=== PATIENT | female | born 1955 | race Caucasian/White ===

== ENCOUNTER 2019-01-22 06:49 | Day surgery (SDC) | payer BC ==
[~2019-01-22] VITALS: Ht 157.5 cm; Wt 69.7 kg
[2019-01-22] MEDS ORDERED: HCTZ12.5TAB PO (07:14)
[2019-01-22] MEDS ORDERED: ARMOUR THYROID60 MG PO (07:15)
[2019-01-22] MEDS ORDERED: LIPITOR 10MG10 MG PO (07:16)
[2019-01-22 07:18] VITALS: BP 181/95; PULSE 87; TEMP 99.2
[2019-01-22] MEDS ORDERED: PROMETRIUM100 MG PO (07:18)
[2019-01-22 09:00] VITALS: BP 157/87; PULSE 74; TEMP 98.2
--- NOTE | 2019-01-22 09:00 | NUR ---
Patient arrives to [facility] for recovery via cart, accompanied by Endo RN Bekah. She is drowsy, but awake and oriented. She ambulates with standby assist to chair in room. Monitoring applied for post-procedural vitals - VSS and WNL on room air. Patient was hypertensive pre-procedure, Dr. Sylvester made aware and no further orders received. Bedside report received from JACKI Godfrey. Patient denies any pain or nausea. She refuses food/drink at this time. Spouse, Dr. Enriquez, brought to the bedside. Call light is within reach. Will continue to monitor.
[2019-01-22 09:15] VITALS: BP 168/97; PULSE 75
--- NOTE | 2019-01-22 09:15 | NUR ---
Patient is resting comfortably in room. She is sipping on water. Tolerating PO well. VSS and WNL on room air.
[2019-01-22 09:30] VITALS: BP 157/89; PULSE 67
--- NOTE | 2019-01-22 09:30 | NUR ---
VSS and WNL on room air. Dr. Sylvester is at the bedside. Patient has met discharge criteria. Discharge instructions discussed, denies any questions, and verbalizes understanding. PIV removed with catheter intact and hemostasis achieved. She changes to her clothing independently. She is escorted to the exit via wheelchair by staff and discharged to home with ride in private vehicle at 0930.
[2019-01-22 10:01] VITALS: BP 145/84; PULSE 70
== END 2019-01-22 09:36 | disposition home or self-care (01) ==
LOC: SDCO 06:49
DX: Z12.11 Encounter for screening for malignant neoplasm of colon (principal); I10 Essential (primary) hypertension; E78.00 Pure hypercholesterolemia, unspecified; E03.9 Hypothyroidism, unspecified; Z79.899 Other long term (current) drug therapy
CPT/HCPCS: J2250; J2405; J3010; J7030

== ENCOUNTER → 2020-12-08 | Outpatient (CLI) | payer BC ==
[~2020-12-08] MED LIST: ARMOUR THYROID60 MG PO; HCTZ12.5TAB PO; LIPITOR 10MG10 MG PO; PROMETRIUM100 MG PO
== END ==
LOC: COL.RAD 08:34
DX: N93.9 Abnormal uterine and vaginal bleeding, unspecified (principal); N83.201 Unspecified ovarian cyst, right side; N85.00 Endometrial hyperplasia, unspecified

== ENCOUNTER → 2020-12-08 | Outpatient (CLI) | payer BC | LOC: MC.RAD 13:03 | DX: Z12.31 Encounter for screening mammogram for malignant neoplasm of breast (principal); Z98.82 Breast implant status ==

== ENCOUNTER → 2023-10-11 | Outpatient (CLI) | payer MEDICARE | LOC: MC.RAD 10-05 12:45 | DX: Z12.31 Encounter for screening mammogram for malignant neoplasm of breast (principal) ==